=== PATIENT | female | born 1980 | race Caucasian/White ===

== ENCOUNTER 2021-06-24 13:24 | Emergency (ER) | payer SELFPAY ==
[~2021-06-24] VITALS: Ht 165.1 cm; Wt 68.5 kg
[2021-06-24 14:35] LABS: HEMOGLOBIN 14.3 gm/dl (12.3-15.3); RED BLOOD COUNT 4.65 M/UL (4.00-5.10); WHITE BLOOD COUNT 7.6 K/UL (4.5-11.0)
[2021-06-24 15:04] LABS: BUN/CREATININE RATIO 19 (0-10)
[2021-06-27] MEDS ORDERED: ZOFRAN 4 MG TAB4 MG PO (18:30)
[2021-06-27] MEDS ORDERED: FIORINAL CAPSULE1 EA PO (18:30)
[2021-06-27] MEDS ORDERED: MECLIZINE HCL25 MG PO (18:30)
== END 2021-06-27 18:55 | disposition home or self-care (01) ==
LOC: ER1 13:24
PROVIDERS: Emergency Medicine
DX: R51.9 Headache, unspecified (principal); Z20.822 Contact with and (suspected) exposure to COVID-19; M79.602 Pain in left arm; M25.512 Pain in left shoulder; W01.10XA Fall on same level from slipping, tripping and stumbling with subsequent striking against unspecified object, initial encounter; Y92.009 Unspecified place in unspecified non-institutional (private) residence as the place of occurrence of the external cause
CPT/HCPCS: ECHO; 70450; 70496; 70498; 70553; 71045; 72125; 73030; 80053; 82550; 82553; 83874; 83880; 84484; 84703; 85025; 93005; 93306; 95816; 96374; 96375; 99284; A9577; J1885; J2270; J2765; Q9967; U0002